=== PATIENT | female | born 1990 ===

== ENCOUNTER 2017-04-23 17:16 | Emergency (ER) | payer MEDICAID ==
[2017-04-23 17:31] VITALS: TEMP 98.4
--- NOTE | 2017-04-23 18:09 | ED PDOC ---
Arrival/HPI - General Chief Complaint: Abdominal Pain Time Seen by Provider: 04/23/17 17:18 Historian: Patient - History of Present Illness Narrative History of Present Illness (Text): 04/23/17 17:59 26yo female with no Past medical history who present with intermittent right pelvic pain, GERD, nausea, vomiting. weight gain, protuberant belly x one month. States her symptoms is typical of the symptoms she had when she was last time. States home test is negative. She states her is usually confirmed only with Ultra sound. she have a COMPUTERIZED MILL RECORDER, but has not been able to see the COMPUTERIZED MILL RECORDER, because of work schedule. States she only vomited once last week. States she have history of irregular periods and can't recall her LMP. She have maciel rign in place. Denies fever, chills, diarrhea, constipation, urinary frequency, hematuria, any other complaint. Past Medical History - Provider Review Nursing Documentation Reviewed: Yes - Cardiac Hx Cardiac Disorders: No - Pulmonary Hx Respiratory Disorders: No - Neurological Hx Neurological Disorder: No - HEENT Hx HEENT Disorder: No - Renal Hx Renal Disorder: No - Endocrine/Metabolic Hx Endocrine Disorders: No - Hematological/Oncological Hx Blood Disorders: No - Integumentary Hx Dermatological Disorder: No - Musculoskeletal/Rheumatological Hx Musculoskeletal Disorders: No - Gastrointestinal Hx Gall Bladder Disease: Yes - Genitourinary/Gynecological Hx Genitourinary Disorders: Yes Other/Comment: OVARIAN CYST - Psychiatric Hx Psychophysiologic Disorder: No Hx Substance Use: No - Surgical History Hx Cholecystectomy: Yes Family/Social History - Physician Review Nursing Documentation Reviewed: Yes Family/Social History: Unknown Family HX Smoking Status: Never Smoked Hx Alcohol Use: No Hx Substance Use: No Allergies/Home Meds Allergies/Adverse Reactions: Allergies No Known Allergies Allergy (Verified 04/23/17 17:24) Review of Systems - Physician Review All systems were reviewed & negative as marked: Yes - Review of Systems Constitutional: Normal Eyes: Normal ENT: Normal Respiratory: Normal Cardiovascular: Normal Gastrointestinal: Abdominal Pain, Nausea, Vomiting. absent: Constipation, Diarrhea, Hematochezia, Hematemesis Genitourinary Female: Normal Musculoskeletal: Normal Skin: Normal Neurological: Normal Endocrine: Normal Hemo/Lymphatic: Normal Psychiatric: Normal Physical Exam Vital Signs Reviewed: Yes Vital Signs Temp Pulse Resp BP Pulse Ox 04/23/17 17:24 98.4 F 86 16 125/80 98 Temperature: Afebrile Blood Pressure: Normal Pulse: Regular Respiratory Rate: Normal Appearance: Positive for: Well-Appearing, Non-Toxic, Comfortable Pain Distress: None Mental Status: Positive for: Alert and Oriented X 3 - Systems Exam Head: Present: Atraumatic, Normocephalic Pupils: Present: PERRL Extroacular Muscles: Present: EOMI Conjunctiva: Present: Normal Mouth: Present: Moist Mucous Membranes Neck: Present: Normal Range of Motion Respiratory/Chest: Present: Clear to Auscultation, Good Air Exchange. No: Respiratory Distress, Accessory Muscle Use Cardiovascular: Present: Regular Rate and Rhythm, Normal S1, S2. No: Murmurs Abdomen: Present: Normal Bowel Sounds, Other (Soft). No: Tenderness, Distention , Peritoneal Signs, Rebound, Guarding, McBurney's Point Tender, Rovsing's Sign Present Back: Present: Normal Inspection Upper Extremity: Present: Normal Inspection. No: Cyanosis, Edema Lower Extremity: Present: Normal Inspection. No: Edema Neurological: Present: GCS=15, CN II-XII Intact, Speech Normal Skin: Present: Warm, Dry, Normal Color. No: Rashes Psychiatric: Present: Alert, Oriented x 3, Normal Insight, Normal Concentration Medical Decision Making ED Course and Treatment: 04/23/17 21:14 PT was comfortable in Emergency department. PE was benign. Pt;s last emesis was once last week. she have UTI and was treated with Macrobid. Transvaginal US - IMPRESSION: 1. Probable complex RIGHT ovarian cyst/follicle. Recommend sonographic followup in 6 weeks to ensure resolution and exclude other etiologies. 2. Malpositioned IUD. Result was DW the pt. she was strongly advised to f/u with her COMPUTERIZED MILL RECORDER for repositioning of her IUD. Refered to her PMD/COMPUTERIZED MILL RECORDER. TRT Emergency department for any new symptoms - Lab Interpretations Lab Results: Lab Results 04/23/17 19:15: Urine Color Yellow, Urine Appearance Sl cloudy, Urine pH 6.0, Ur Specific [place] 1.020, Urine Protein Negative, Urine Glucose (UA) Negative, Urine Ketones Negative, Urine Blood Trace-intact H, Urine Nitrate Negative, Urine Bilirubin Negative, Urine Urobilinogen 0.2, Ur Leukocyte Esterase Small H , Urine RBC 1 - 3, Urine WBC 15 - 20, Ur Epithelial Cells 10 - 12, Urine Bacteria Many, Urine HCG, Qual Negative - RAD Interpretation Radiology Orders: 04/23/17 17:58 TRANSVAGINAL [US] Stat - Medication Orders Current Medication Orders: Discontinued Medications Nitrofurantoin Macrocrystals (Macrobid) 100 mg PO ONCE STA Stop: 04/23/17 20:08 Last Admin: 04/23/17 20:47 Dose: 100 mg Disposition/Present on Arrival - Present on Arrival Any Indicators Present on Arrival: No History of DVT/PE: No History of Uncontrolled Diabetes: No Urinary Catheter: No History of Decub. Ulcer: No History Surgical Site Infection Following: None - Disposition Have Diagnosis and Disposition been Completed?: Yes Diagnosis: UTI (urinary tract infection), Ovarian cyst Disposition: HOME/ ROUTINE Disposition Time: 21:20 Patient Plan: Discharge Patient Problems: Current Active Problems Problem Status Onset UTI (urinary tract infection) Acute Condition: STABLE Discharge Instructions (ExitCare): Urinary Tract Infection in Women (ED) Additional Instructions: Follow up with your doctor/COMPUTERIZED MILL RECORDER Return to ED for any new or worsening symptoms Prescriptions: Nitrofurantoin Macrocrystals [Macrobid] 100 mg PO BID #14 cap Referrals: Mare Ballard MDE [Primary Care Provider] - Follow up with primary Forms: [employer] ([employer])
[2017-04-23 19:52] LABS: URINE BILIRUBIN NEGATIVE (NEGATIVE); URINE BLOOD TRACE-INTACT (NEGATIVE); URINE GLUCOSE (UA) NEGATIVE (NEGATIVE); URINE KETONE NEGATIVE (NEGATIVE); URINE LEUKOCYTE ESTERASE SMALL Leu/uL (NEGATIVE); URINE PROTEIN NEGATIVE mg/dL (<30 mg/dL); URINE UROBILINOGEN 0.2 E.U./dL (<1 E.U./dL)
[2017-04-23 19:54] LABS: URINE APPEARANCE SL CLOUDY (CLEAR); URINE COLOR YELLOW (YELLOW)
[2017-04-23 20:03] LABS: URINE BACTERIA MANY (NEG); URINE WBC 15 - 20 /hpf (0-6)
--- NOTE | 2017-04-23 21:14 | US ---
EXAM: US Pelvis Complete, Transabdominal CLINICAL HISTORY: 26 years old, female; Pain; Pelvic pain; Additional info: Right pelvic pain TECHNIQUE: Real-time transabdominal pelvic ultrasound (complete) with image documentation. COMPARISON: No relevant prior studies available. FINDINGS: Uterus/cervix: Uterus measures 9.0 x 3.7 x 4.3 cm in size. No myometrial mass. Endometrium: 0.4 cm in thickness. IUD within lower uterine segment/cervix. Nabothian cyst. Right ovary: 1.8 x 2.2 x 1.5 cm in size. 1.1 x 0.6 x 1.1 cm hypoechoic lesion with internal echoes. Small follicles. Normal flow. Left ovary: 2.6 x 2.8 x 1.9 cm in size. No mass. Small follicles. Normal flow. Free fluid: No significant free fluid. Bladder: Unremarkable as visualized. IMPRESSION: 1. Probable complex RIGHT ovarian cyst/follicle. Recommend sonographic followup in 6 weeks to ensure resolution and exclude other etiologies. 2. Malpositioned IUD. EXAM: US Pelvis, Transvaginal CLINICAL HISTORY: 26 years old, female; Pain; Pelvic pain; Additional info: Right pelvic pain TECHNIQUE: Real-time transvaginal pelvic ultrasound (complete) with image documentation. Transvaginal imaging was used for better evaluation of the endometrium and adnexa. COMPARISON: No relevant prior studies available. FINDINGS: Uterus/cervix: Uterus measures 9.0 x 3.7 x 4.3 cm in size. No myometrial mass. Endometrium: 0.4 cm in thickness. IUD within lower uterine segment/cervix. Nabothian cyst. Right ovary: 1.8 x 2.2 x 1.5 cm in size. 1.1 x 0.6 x 1.1 cm hypoechoic lesion with internal echoes. Small follicles. Normal flow. Left ovary: 2.6 x 2.8 x 1.9 cm in size. No mass. Small follicles. Normal flow. Free fluid: No significant free fluid. Bladder: Empty bladder which cannot be evaluated with this probe.
[2017-04-23 21:42] VITALS: BP 128/82; PULSE 82; RESP 18; O2SAT 100
== END 2017-04-23 21:30 | disposition home or self-care (01) ==
LOC: ED 17:16
DX: N39.0 Urinary tract infection, site not specified (principal); N83.201 Unspecified ovarian cyst, right side